=== PATIENT | male | born 1955 | race Two or more races ===

== ENCOUNTER → 2024-09-12 | Outpatient (BNVA) | payer MEDICAID, SELFPAY | END | disposition home or self-care (01) | PROVIDERS: PCP Nurse Practitioner Primary Care; Referring Provider Nurse Practitioner Primary Care; Visit Provider Nurse Practitioner Primary Care | DX: Z76.89 Persons encountering health services in other specified circumstances (principal); G89.29 Other chronic pain; M25.552 Pain in left hip; Z01.01 Encounter for examination of eyes and vision with abnormal findings; Z13.220 Encounter for screening for lipoid disorders; Z13.1 Encounter for screening for diabetes mellitus; M54.42 Lumbago with sciatica, left side | CPT/HCPCS: 99204 ==

== ENCOUNTER → 2024-09-13 | Outpatient (CLI) | payer MEDICAID, SELFPAY ==
--- NOTE | 2024-09-13 | XR_ITS ---
Examination: Scoliosis survey 4 views TECHNIQUE: AP lateral thoracic AP lateral lumbar spine 4 views Date and time: September 13, 2024 1553 hours INDICATIONS: Scoliosis, abnormal back curvature and back pain on clinical examination by physician this week. FINDINGS: Significant osteopenia Thoracic dextroscoliosis 12 degrees Lumbar levoscoliosis 19 degrees No segmentation anomalies Mild to moderate diffuse thoracic degenerative disc disease Moderate to advanced lumbar degenerative disc disease IMPRESSION: Scoliosis as above
--- NOTE | 2024-09-13 15:04 | XR_ITS ---
Examination: Bilateral hips, AP pelvis, 5 views Technique: AP, lateral views both hips, AP pelvis, 5 views Exam date and time: September 13, 2024 1521 hours INDICATIONS: Left hip pain beginning one year ago. FINDINGS: Advanced left hip osteoarthritis Moderate right hip osteoarthritis No hip or pelvic fracture IMPRESSION: Advanced left hip osteoarthritis
== END | disposition home or self-care (01) ==
PROVIDERS: PCP Nurse Practitioner Primary Care; Referring Provider Nurse Practitioner Primary Care; Visit Provider Nurse Practitioner Primary Care
DX: M16.12 Unilateral primary osteoarthritis, left hip (principal); M41.84 Other forms of scoliosis, thoracic region; M41.86 Other forms of scoliosis, lumbar region
CPT/HCPCS: 72083; 73523

== ENCOUNTER → 2024-09-28 | Outpatient (BNVA) | payer MEDICAID, SELFPAY | END | disposition home or self-care (01) | PROVIDERS: PCP Nurse Practitioner Primary Care; Referring Provider Nurse Practitioner Primary Care; Visit Provider Nurse Practitioner Primary Care | DX: Z00.01 Encounter for general adult medical examination with abnormal findings (principal); Z71.2 Person consulting for explanation of examination or test findings; E78.2 Mixed hyperlipidemia; E55.9 Vitamin D deficiency, unspecified; M41.85 Other forms of scoliosis, thoracolumbar region; M16.12 Unilateral primary osteoarthritis, left hip; R73.03 Prediabetes; I10 Essential (primary) hypertension; Z12.11 Encounter for screening for malignant neoplasm of colon; Z13.820 Encounter for screening for osteoporosis | CPT/HCPCS: 93005; 99173; 99214 ==

== ENCOUNTER → 2024-10-01 | Outpatient (BNVA) | payer MEDICAID, SELFPAY | END | disposition home or self-care (01) | PROVIDERS: PCP Nurse Practitioner Primary Care; Referring Provider Nurse Practitioner Primary Care; Visit Provider Nurse Practitioner Primary Care | DX: Z71.2 Person consulting for explanation of examination or test findings (principal); R97.20 Elevated prostate specific antigen [PSA]; R35.1 Nocturia | CPT/HCPCS: 99212; G0463 ==

== ENCOUNTER → 2024-10-15 | Outpatient (BNVA) | payer MEDICAID, SELFPAY | END | disposition home or self-care (01) | PROVIDERS: PCP Nurse Practitioner Primary Care; Referring Provider Nurse Practitioner Primary Care; Visit Provider Nurse Practitioner Primary Care | DX: I10 Essential (primary) hypertension (principal) | CPT/HCPCS: 99213 ==

== ENCOUNTER → 2024-11-08 | Outpatient (BNVA) | payer MEDICAID, SELFPAY | END | disposition home or self-care (01) | PROVIDERS: PCP Nurse Practitioner Primary Care; Referring Provider Nurse Practitioner Primary Care; Visit Provider Nurse Practitioner Family | DX: M16.12 Unilateral primary osteoarthritis, left hip (principal); I10 Essential (primary) hypertension; E55.9 Vitamin D deficiency, unspecified | CPT/HCPCS: 99213 ==

== ENCOUNTER → 2024-12-07 | Outpatient (BNVA) | payer MEDICAID, SELFPAY | END | disposition home or self-care (01) | PROVIDERS: PCP Nurse Practitioner Primary Care; Referring Provider Nurse Practitioner Primary Care; Visit Provider Nurse Practitioner Primary Care | DX: M16.12 Unilateral primary osteoarthritis, left hip (principal) | CPT/HCPCS: 99213 ==

== ENCOUNTER 2024-12-14 08:55 | Day surgery (SDC) | payer MEDICAID, SELFPAY ==
[2024-12-12 11:21] VITALS: BMI 23.8
[2024-12-12 11:53] LABS: Collection Type, Urine Clean Catch
[2024-12-12 12:36] LABS: Basophils # (Auto) 0.0 Thou/mm3 (0.0-0.2); Basophils % (Auto) 0 % (0-2.5); Eosinophils # (Auto) 0.1 Thou/mm3 (0.0-0.5); Eosinophils % (Auto) 1 % (0-10); Hematocrit 43.5 % (41.0-53.0); Hemoglobin 14.1 g/dL (13.5-16.0); Immature Granulocytes Auto 0.02 Thou/mm3 (0.00-0.00); Lymphocytes # (Auto) 1.5 Thou/mm3 (1.0-4.8); Lymphocytes % (Auto) 24 % (10-50); Mean Corpuscular HGB Conc 32.4 g/dl (31.0-37.0); Mean Corpuscular Hemoglobin 27.6 pg (25.0-35.0); Mean Corpuscular Volume 85 fL (80-100); Monocytes # (Auto) 0.7 Thou/mm3 (0.0-0.8); Monocytes % (Auto) 11 % (0-12); Neutrophils # (Auto) 4.1 Thou/mm3 (1.8-7.7); Neutrophils % (Auto) 64 % (37-80); Nucleated Red Blood Cell # 0.00 Thou/mm3 (0.00-0.00); Nucleated Red Blood Cell % 0 /100 WBC (0); Platelet Count 189 Thou/mm3 (140-440); RDW Standard Deviation 40.4 fL (35.1-43.9); Red Blood Count 5.11 Miln/mm3 (4.50-5.90); White Blood Count 6.4 Thou/mm3 (3.8-10.6)
[2024-12-12 12:40] LABS: Bilirubin,Urine Negative (Negative); Blood,Urine Negative (Negative); Clarity,Urine Clear (Clear/Hazy); Color,Urine Yellow (Lt Yel-Yel); Glucose, Urine Negative (Negative); Ketones,Urine Negative (Negative); Leukocyte Esterase,Urine Negative (Negative); Nitrite,Urine Negative (Negative); PH,Urine 5.5 (5.0-7.0); Protein,Urine Trace (Neg - Trace); RBC,Urine 3 /hpf (0-3); Specific Gravity,Urine 1.031 (1.001-1.035); Squamous Epithelial Cell,Urine 1 /hpf (0-5); Urobilinogen,Urine Negative mg/dL (0.0-1.0); WBC,Urine 1 /hpf (0-5)
[2024-12-12 12:47] LABS: Alanine Aminotransferase 15 U/L (10-49); Albumin, Serum 4.6 gm/dL (3.4-4.8); Albumin/Globulin Ratio 1.9 (1.2-2.2); Alkaline Phosphatase 60 U/L (46-116); Anion Gap 9 (7-16); Aspartate Amino Transferase 20 U/L (0-34); BUN/Creatinine Ratio 15 Ratio (12-20); Bilirubin,Total 0.6 mg/dL (0.3-1.2); Blood Urea Nitrogen 12 mg/dL (9-23); Calcium 9.6 mg/dL (8.3-10.6); Calcium (Corrected) 9.6 mg/dL (8.5-10.1); Carbon Dioxide 25.0 mMol/L (20.0-31.0); Chloride 108 mMol/L (98-107); Creatinine (Component) 0.8 mg/dL (0.6-1.3); Estimated Creatinine Clearance 97.1 mL/min (>60); Globulin 2.4 gm/dL (2.3-3.5); Glucose 105 mg/dL (74-106); Osmolality,Calculated 282 (275-295); Potassium 4.0 mMol/L (3.4-5.1); Sodium 142 mMol/L (136-145); Total Protein 7.0 gm/dL (5.7-8.2); eGFR > 60 See Note
--- NOTE | 2024-12-13 16:12 | SUR.PREOP ---
Pt rodolfo Valle notified to bring pt at 0900 tomorrow.
--- NOTE | 2024-12-14 07:33 | ESHP_ITS ---
RE: IDRIS ONEAL : 1955 DATE OF ADMISSION: 12/13/2024 HISTORY OF PRESENT ILLNESS: A 70-year-old gentleman who was referred to me with elevated PSA of 6.5. He is American-speaking male, nocturia 3-4 times, slowing urinary stream, no history of gross hematuria, no history of any urinary burning. PAST SURGICAL HISTORY: None. SOCIAL HISTORY: The patient has 7 children. PAST MEDICAL HISTORY: The patient does not have any history of diabetes mellitus. He has a history of hypertension. ALLERGIES: NONE KNOWN. MEDICATIONS: He takes hypertension medication. PHYSICAL EXAMINATION: HEENT: Normal. NECK: Supple. LUNGS: Clear. CARDIOVASCULAR: Heart sounds are normal. ABDOMEN: Soft without any organomegaly. No guarding. No rigidity. EXTREMITIES: Normal. GENITOURINARY: Phallus normal. Testes are down in the scrotum. Rectal examination reveals moderately large prostate with some firmness throughout. IMPRESSION: Prostatism, prostatic obstruction. Elevated PSA of 6.5. PLAN: Cystoscopy and transrectal prostatic ultrasound with ultrasound-guided prostatic needle biopsy. Planned procedure risks and complications have been discussed with the patient. The patient has understood them and agreed to proceed. DT: 12:32:13 TT: 13:24:00 Ref: [id number] - TID: [id number]
[2024-12-14 09:30] VITALS: BP 144/88; PULSE 65; RESP 15; TEMP 37.2; O2SAT 96; BMI 24.0
[2024-12-14] MEDS: RINGERS LACTATED 1000 ML 1,000 ML 20 ML IV (09:30)
--- NOTE | 2024-12-14 10:00 | SUR.PREOP ---
Patient expressed gratitude for prayer before their procedure
[2024-12-14 11:45] VITALS: BP 110/71; PULSE 59; RESP 18; TEMP 36.4; O2SAT 97
--- NOTE | 2024-12-14 11:45 | SUR.PHASEII ---
pt arrived to pacu via gurney drowsy but arouses to voice, breathing unlabored, report from John LOZANO and Shekhar MCKEON
[2024-12-14 11:50] VITALS: BP 108/75; PULSE 52; RESP 13; O2SAT 95
[2024-12-14 11:55] VITALS: BP 122/71; PULSE 51; RESP 18; O2SAT 96
[2024-12-14 12:00] VITALS: BP 117/77; PULSE 51; RESP 12; O2SAT 97
--- NOTE | 2024-12-14 12:00 | SUR.PHASEII ---
pt tolerating oral fluids without difficulty swallowing or n/v
--- NOTE | 2024-12-14 12:11 | SUR.PHASEII ---
report to Elina LOZANO
--- NOTE | 2024-12-14 12:11 | SUR.PHASEII ---
1211: Report received from Linda Carrion RN. Pt. AAOx4, vitals stable, breathing unlabored, no complaint of pain or nausea.
[2024-12-14 12:15] VITALS: BP 119/94; PULSE 58; RESP 12; TEMP 36.6; O2SAT 99
--- NOTE | 2024-12-14 12:25 | SUR.PHASEII ---
1225: Pt. AAOx4, vitals stable, breathing unlabored, no complaint of pain or nausea in place, no active bleed noted, pt. tolerated sips of water well, pt. ambulated to wheelchair with steady gait and no assist, no complications. Gave discharge instructions to the pt. and his ride, both verbalized understanding and had no further questions. Pt. left with all personal belongings.
--- NOTE | 2024-12-14 12:30 | XR_ITS ---
Examination: Transrectal prostate sonography TECHNIQUE: Grayscale sonographic transrectal sonographic images prostate INDICATIONS: OR prostate biopsies by physician today Date and time: December 14, 2024 1125 hours FINDINGS: OR prostate biopsies performed by physician today, multiple transrectal prostate images, prostate volume 41 cc IMPRESSION: Transrectal prostate sonographic images for prostate biopsies by physician today
--- NOTE | 2024-12-14 17:57 | ESOP_ITS ---
RE: IDRIS ONEAL : 1955 DATE OF OPERATION: 12/14/2024 PREOPERATIVE DIAGNOSES: Prostatism, prostatic obstruction, elevated PSA of 6.5. POSTOPERATIVE DIAGNOSES: Prostatism, prostatic obstruction, elevated PSA of 6.5. PROCEDURES PERFORMED: Cystoscopy, urethral dilatation, transrectal prostatic ultrasound with ultrasound-guided prostatic needle biopsy. ANESTHESIA: Monitored anesthesia by LINDA Corrigan. INDICATION: The patient is a 69-year-old gentleman with nocturia 3-4 times with elevated PSA of 6.5. Rectally, he has a moderately large, smooth prostate with some firmness all over. He is now scheduled to have cystoscopy and transrectal prostatic ultrasound and biopsy of the prostate. Planned procedure, risks, and complications have been discussed with the patient. The patient has understood them and agreed to proceed. DESCRIPTION OF PROCEDURE: After the patient was brought to the operating table under adequate monitored anesthesia given by Mr. Shekhar CRNA, he was placed in dorsal lithotomy position. Parts were prepped and draped in the usual fashion. Cystoscopy was then carried out, which revealed adequate urethral meatus, normal-appearing urethra, moderately large bilobed prostate, residual urine 3 ounces, yellow and clear. Bladder appeared trabeculated with multiple small bladder diverticula. There are no intravesical stones or tumors. Ureteral orifices were found to be normal in position and appearance. Scope was withdrawn. Urethra was dilated. The patient was then turned in the left lateral position. Transrectal prostatic ultrasound was then carried out. Biopsies were obtained from both lobes using ultrasound guidance. Prostatic volume was measured at 41 cubic centimeters. The patient tolerated the entire procedure well and left the room in good condition. DT: 11:49:02 TT: 17:55:00 Ref: [id number] - TID: [id number]
== END 2024-12-14 12:25 | disposition home or self-care (01) ==
PROVIDERS: Anesthesiology; PCP Nurse Practitioner Family; Referring Provider Surgery; Visit Provider Surgery
PROC: 0TJB8ZZ Inspection of Bladder, Via Natural or Artificial Opening Endoscopic (ICD-10-PCS; CPT 52000; principal; 2024-12-14 11:00)
PROC: (CPT 55700; 2024-12-14 11:00)
DX: C61 Malignant neoplasm of prostate (principal)
CPT/HCPCS: 52281; 55700; 36415; 76942; 80053; 81001; 85025; 87086; A4217; A4649; J0694; J1885; J2250; J2704; J3010; J7120

== ENCOUNTER 2024-12-26 06:50 | Day surgery (SDC) | payer MEDICAID, SELFPAY ==
[2024-12-26] VITALS (10 sets, daily range): BP systolic 116–156; BP diastolic 75–96; PULSE 51–69; RESP 14–23; TEMP 36.6–37; O2SAT 96–100; BMI 23.8
[2024-12-26] MEDS: fentaNYL CIT INJ 50 mCg/ML AMP 2ML (ASD USE ONLY) IVP (08:06)
[2024-12-26] MEDS: SODIUM CHLORIDE 0.9% 500 ML 500 ML 125 ML IV (08:06)
[2024-12-26] MEDS: MIDAZOLAM INJ 1 MG/ML VIAL 2 ML (ASD USE ONLY) 2 MG IVP (08:10)
== END 2024-12-26 09:16 | disposition home or self-care (01) ==
PROVIDERS: PCP Nurse Practitioner Family; Referring Provider Surgery; Visit Provider Surgery
PROC: 0DBE8ZX Excision of Large Intestine, Via Natural or Artificial Opening Endoscopic, Diagnostic (ICD-10-PCS; CPT 45380; principal; 2024-12-26 08:00)
DX: Z12.11 Encounter for screening for malignant neoplasm of colon (principal); D12.3 Benign neoplasm of transverse colon; K64.0 First degree hemorrhoids; K57.30 Diverticulosis of large intestine without perforation or abscess without bleeding; M19.90 Unspecified osteoarthritis, unspecified site
CPT/HCPCS: 45380; J1200; J2250; J3010; J7999

== ENCOUNTER → 2025-03-06 | Outpatient (BNVA) | payer MEDICAID, SELFPAY | END | disposition home or self-care (01) | PROVIDERS: PCP Nurse Practitioner Primary Care; Referring Provider Nurse Practitioner Primary Care; Visit Provider Nurse Practitioner Primary Care | DX: Z71.2 Person consulting for explanation of examination or test findings (principal); I10 Essential (primary) hypertension; Z23 Encounter for immunization | CPT/HCPCS: 90471; 90686; 99213; G0008 ==

== ENCOUNTER → 2025-03-13 | Outpatient (BNVA) | payer MEDICAID, SELFPAY | END | disposition home or self-care (01) | PROVIDERS: PCP Nurse Practitioner Primary Care; Referring Provider Nurse Practitioner Primary Care; Visit Provider Nurse Practitioner Primary Care | DX: I10 Essential (primary) hypertension (principal); E78.5 Hyperlipidemia, unspecified; J06.9 Acute upper respiratory infection, unspecified | CPT/HCPCS: 99213 ==